=== PATIENT | male | born 1960 | race Two or more races ===

== ENCOUNTER 2016-08-01 10:47 | Outpatient (CLI) | payer MEDICAID, MEDICARE ==
[2016-08-04] MEDS ORDERED: METO100T6 PO (16:47)
== END 2016-08-01 23:59 | disposition home or self-care (01) ==
LOC: WOU 10:47
PROVIDERS: ATTEND Podiatrist Foot & Ankle Surgery
DX: E11.52 Type 2 diabetes mellitus with diabetic peripheral angiopathy with gangrene (principal); I70.262 Atherosclerosis of native arteries of extremities with gangrene, left leg; L97.529 Non-pressure chronic ulcer of other part of left foot with unspecified severity; Z83.3 Family history of diabetes mellitus; Z94.0 Kidney transplant status; Z79.4 Long term (current) use of insulin; Z79.899 Other long term (current) drug therapy; Z87.891 Personal history of nicotine dependence
CPT/HCPCS: A6402; G0463

== ENCOUNTER 2016-08-04 08:48 | Outpatient (CLI) | payer MEDICARE ==
[~2016-08-04] VITALS: Ht 167.6 cm; Wt 78.5 kg
[2016-08-04] MEDS ORDERED: LOSA50TA21 PO (16:47)
[2016-08-04] MEDS ORDERED: METO-306 PO (16:47)
[2016-08-04] MEDS ORDERED: FOLI1TAB16 PO (16:47)
[2016-08-04] MEDS ORDERED: CLON1PAT2 TD (16:47)
[2016-08-04] MEDS ORDERED: AMLO10TA2 PO (16:47)
[2016-08-04] MEDS ORDERED: MYCO500T5 PO (16:47)
[2016-08-04] MEDS ORDERED: PRED5TAB PO (16:47)
[2016-08-04] MEDS ORDERED: INSU3INS6 SUBCUT (17:07)
[2016-08-04] MEDS ORDERED: PANT40TA4 PO (17:07)
[2016-08-04] MEDS ORDERED: CALC0.253 PO (17:07)
[2016-08-04] MEDS ORDERED: ERGO400T7 PO (17:07)
[2016-08-04] MEDS ORDERED: [UNRECOGNIZED DRUG - CODE] MC (17:07)
[2016-08-04] MEDS ORDERED: LEVO50TA PO (17:07)
== END 2016-08-04 23:59 | disposition other institution (70) ==
LOC: WOU 08:48
PROVIDERS: ATTEND Podiatrist Foot & Ankle Surgery
DX: E11.52 Type 2 diabetes mellitus with diabetic peripheral angiopathy with gangrene (principal); E11.621 Type 2 diabetes mellitus with foot ulcer; L97.529 Non-pressure chronic ulcer of other part of left foot with unspecified severity; Z79.4 Long term (current) use of insulin; Z83.3 Family history of diabetes mellitus; Z87.891 Personal history of nicotine dependence; E11.42 Type 2 diabetes mellitus with diabetic polyneuropathy; Z94.0 Kidney transplant status; I70.262 Atherosclerosis of native arteries of extremities with gangrene, left leg
CPT/HCPCS: 36415; 87081; A6402; G0463

== ENCOUNTER 2016-08-04 10:35 | Inpatient (IN) | payer MEDICARE ==
[~2016-08-04] VITALS: Ht 167.6 cm; Wt 68.9 kg
[2016-08-04 12:00] VITALS: BP 159/78
[2016-08-04] MEDS ORDERED: MAG HYDROX/AL HYDROX/SIMETH 30 ML UDC PO PRN (12:30)
[2016-08-04] MEDS ORDERED: HYDROCODONE/APAP 5/325MG 1 EACH TABLET PO PRN (12:30)
[2016-08-04] MEDS ORDERED: Z GUARD REMEDY 2 OZ OINT TP PRN (12:30)
[2016-08-04] MEDS ORDERED: HYDROMORPHONE 1 MG/1 ML DISP.SYRIN IV PRN (12:30)
[2016-08-04] MEDS ORDERED: DEXTROSE 50%-WATER 50 ML DISP.SYRIN IV PRN (12:30)
[2016-08-04] MEDS ORDERED: ZOLPIDEM TARTRATE 5 MG TABLET PO PRN (12:30)
[2016-08-04] MEDS: BLOOD SUGAR DIAGNOSTIC 1 EACH STRIP VI SCH ×3 (13:00→21:33)
[2016-08-04 13:06] LABS: BASOPHILS % (AUTO) 0.2 % (0.0-2.0); DIFF TOTAL % 100 %; EOSINOPHILS # (AUTO) 0.1 /CMM (0.0-0.7); EOSINOPHILS % (AUTO) 1.6 % (0.0-6.0); HEMATOCRIT 34 % (39-51); HEMOGLOBIN 11.4 g/dL (13.5-17.5); LYMPHOCYTES % (AUTO) 12.6 % (20.0-44.0); MEAN CORPUSCULAR HEMOGLOBIN 26 PG (26.0-33.0); MEAN CORPUSCULAR HGB CONC 33 g/dl (31.0-36.0); MEAN CORPUSCULAR VOLUME 77 fL (80-96); MONOCYTES # (AUTO) 0.5 /CMM (0.1-1.30); MONOCYTES % (AUTO) 6.5 % (2.0-12.0); NEUTROPHILS % (AUTO) 79.1 % (43.0-81.0); PLATELET COUNT (AUTO) 502 /CMM (150-450); RED BLOOD CELL COUNT(AUTO) 4.44 MIL/uL (4.5-6.0); WHITE BLOOD COUNT (AUTO) 7.6 K/uL (4.3-11.0)
[2016-08-04 13:15] LABS: CALCIUM, SERUM 9.2 mg/dL (8.5-10.1); CREATININE 2.1 mg/dL (0.6-1.3); POTASSIUM 5.2 mmol/L (3.5-5.1)
[2016-08-04] MEDS ORDERED: IV SET PRIMARY PUMP SET 1 EA INFUS.SET MC ONE (14:37)
[2016-08-04] MEDS: IV NS 0.9% 1,000 ML IV SCH (14:41)
[2016-08-04] MEDS: HYDROMORPHONE INJ 2 MG/ML DISP.SYRIN IV PRN ×2 (14:41→20:20)
[2016-08-04 16:00] VITALS: BP 173/90
[2016-08-04] MEDS ORDERED: SODIUM POLYSTYRENE SULFONATE 15 G/60 ML BOTTLE PO ONE (16:00)
[2016-08-04 16:23] LABS: INR 0.95 (0.87-1.13); PROTHROMBIN TIME 10.3 SECS (9.5-12.7)
[2016-08-04] MEDS: Magnesium 1GM/D5W 100ML PREMIX 100 ML IV SCH ×3 (16:25→18:42)
[2016-08-04] MEDS: DOCUSATE SODIUM 250 MG CAPSULE PO SCH (16:28)
[2016-08-04] MEDS: INSULIN REGULAR, HUMAN 100 UNIT/ML 3 ML VIAL SQ PRN (16:35)
[2016-08-04] MEDS ORDERED: METO-306 PO (16:47)
[2016-08-04] MEDS ORDERED: PRED5TAB PO (16:47)
[2016-08-04] MEDS ORDERED: AMLO10TA2 PO (16:47)
[2016-08-04] MEDS ORDERED: CLON1PAT2 TD (16:47)
[2016-08-04] MEDS ORDERED: FOLI1TAB16 PO (16:47)
[2016-08-04] MEDS ORDERED: LOSA50TA21 PO (16:47)
[2016-08-04] MEDS ORDERED: MYCO500T5 PO (16:47)
[2016-08-04] MEDS ORDERED: PANT40TA4 PO (17:07)
[2016-08-04] MEDS ORDERED: INSU3INS6 SUBCUT (17:07)
[2016-08-04] MEDS ORDERED: LEVO50TA PO (17:07)
[2016-08-04] MEDS ORDERED: [UNRECOGNIZED DRUG - CODE] MC (17:07)
[2016-08-04] MEDS ORDERED: CALC0.253 PO (17:07)
[2016-08-04] MEDS ORDERED: ERGO400T7 PO (17:07)
[2016-08-04] MEDS ORDERED: BLOOD SUGAR DIAGNOSTIC 1 EACH STRIP IN SCH (17:30)
[2016-08-04] MEDS: ONDANSETRON HCL/PF 4 MG/2 ML VIAL IVP PRN (17:47)
[2016-08-04 20:00] VITALS: BP 150/86
[2016-08-04] MEDS: *INSULIN REGULAR(HUMULIN R)HUM 100 UNIT/ML VIAL SQ PRN (21:53)
[2016-08-05] VITALS (7 sets, daily range): BP systolic 144–168; BP diastolic 65–93
[2016-08-05] MEDS: IV NS 0.9% 1,000 ML IV SCH ×4 (00:27→17:46)
[2016-08-05] MEDS: HYDROMORPHONE INJ 2 MG/ML DISP.SYRIN IV PRN ×2 (00:28→15:07)
[2016-08-05] MEDS: ONDANSETRON HCL/PF 4 MG/2 ML VIAL IVP PRN ×2 (00:41→06:57)
[2016-08-05] MEDS: INSULIN DETEMIR 100 UNIT/ML CARTRIDGE SQ SCH (00:43)
[2016-08-05] MEDS: BLOOD SUGAR DIAGNOSTIC 1 EACH STRIP VI SCH ×4 (05:58→22:52)
[2016-08-05 07:16] LABS: DIFF TOTAL % 100 %; EOSINOPHILS % (AUTO) 0.6 % (0.0-6.0); HEMATOCRIT 34 % (39-51); HEMOGLOBIN 11.4 g/dL (13.5-17.5); LYMPHOCYTES # (AUTO) 0.6 /CMM (0.8-4.8); LYMPHOCYTES % (AUTO) 8.8 % (20.0-44.0); MEAN CORPUSCULAR HEMOGLOBIN 26 PG (26.0-33.0); MEAN CORPUSCULAR HGB CONC 33 g/dl (31.0-36.0); MEAN CORPUSCULAR VOLUME 78 fL (80-96); MONOCYTES # (AUTO) 0.5 /CMM (0.1-1.30); MONOCYTES % (AUTO) 7.6 % (2.0-12.0); NEUTROPHILS # (AUTO) 5.5 /CMM (1.8-8.9); PLATELET COUNT (AUTO) 492 /CMM (150-450); RED BLOOD CELL COUNT(AUTO) 4.43 MIL/uL (4.5-6.0); WHITE BLOOD COUNT (AUTO) 6.6 K/uL (4.3-11.0)
[2016-08-05] MEDS: PANTOPRAZOLE 40 MG TABLET.DR PO SCH (07:30)
[2016-08-05 07:43] LABS: THYROID STIMULATING HORMONE 2.262 uIU/mL (0.358-3.74)
[2016-08-05 07:47] LABS: CALCIUM, SERUM 8.8 mg/dL (8.5-10.1); CREATININE 1.9 mg/dL (0.6-1.3); PHOSPHORUS 3.6 mg/dL (2.5-4.9); POTASSIUM 4.7 mmol/L (3.5-5.1)
[2016-08-05] MEDS: LOSARTAN POTASSIUM 50 MG TABLET PO SCH ×2 (09:00→16:35)
[2016-08-05] MEDS ORDERED: PANTOPRAZOLE 40 MG TABLET.DR PO SCH (09:00)
[2016-08-05] MEDS: DOCUSATE SODIUM 250 MG CAPSULE PO SCH ×2 (09:00→16:14)
[2016-08-05] MEDS: LEVOTHYROXINE SODIUM 50 MCG TABLET PO SCH (10:00)
[2016-08-05] MEDS: METOPROLOL SUCCINATE 50 MG TAB.SR.24H PO SCH (10:00)
[2016-08-05] MEDS: AMLODIPINE BESYLATE 10 MG TABLET PO SCH (10:00)
[2016-08-05] MEDS: predniSONE 5 MG TABLET PO SCH (10:00)
[2016-08-05] MEDS: MYCOPHENOLATE MOFETIL 250 MG CAPSULE PO SCH ×2 (10:00→16:16)
[2016-08-05] MEDS: CALCITRIOL 0.25 MCG CAPSULE PO SCH (10:00)
[2016-08-05] MEDS: FOLIC ACID 1 MG TABLET PO SCH (10:00)
[2016-08-05] MEDS ORDERED: POVIDONE-IODINE OINT 28.4 GM TUBE ONE (10:20)
[2016-08-05] MEDS ORDERED: HYDROMORPHONE 1 MG/1 ML DISP.SYRIN ONE ×3 (11:21→11:53)
[2016-08-05] MEDS ORDERED: CLONIDINE HCL 0.2MG/24H PTWK 1 EA PATCH TD SCH (12:00)
[2016-08-05] MEDS: INSULIN REGULAR, HUMAN 100 UNIT/ML 3 ML VIAL SQ PRN ×2 (13:15→17:24)
[2016-08-05] MEDS ORDERED: CLONIDINE HCL 0.1 MG TABLET ONE (22:36)
[2016-08-05] MEDS: TACROLIMUS ANHYDROUS 1 MG CAPSULE PO SCH (22:52)
[2016-08-05] MEDS: CLONIDINE HCL 0.1 MG TABLET PO SCH (22:53)
[2016-08-06] MEDS: INSULIN DETEMIR 100 UNIT/ML CARTRIDGE SQ SCH ×2 (00:04→21:15)
[2016-08-06] MEDS: *INSULIN REGULAR(HUMULIN R)HUM 100 UNIT/ML VIAL SQ PRN ×4 (00:06→21:18)
[2016-08-06 04:00] VITALS: BP 155/83
[2016-08-06] MEDS: IV NS 0.9% 1,000 ML IV SCH ×2 (06:50→15:05)
[2016-08-06] MEDS: BLOOD SUGAR DIAGNOSTIC 1 EACH STRIP VI SCH ×4 (06:50→21:11)
[2016-08-06] MEDS: INSULIN REGULAR, HUMAN 100 UNIT/ML 3 ML VIAL SQ PRN (06:53)
[2016-08-06 08:00] VITALS: BP 179/97
[2016-08-06] MEDS: METOPROLOL SUCCINATE 50 MG TAB.SR.24H PO SCH (08:36)
[2016-08-06] MEDS: AMLODIPINE BESYLATE 10 MG TABLET PO SCH (08:37)
[2016-08-06] MEDS: predniSONE 5 MG TABLET PO SCH (08:37)
[2016-08-06] MEDS: LOSARTAN POTASSIUM 50 MG TABLET PO SCH ×2 (08:37→16:15)
[2016-08-06] MEDS: TACROLIMUS ANHYDROUS 1 MG CAPSULE PO SCH ×2 (08:37→21:11)
[2016-08-06] MEDS: DOCUSATE SODIUM 250 MG CAPSULE PO SCH ×2 (08:38→16:15)
[2016-08-06] MEDS: LEVOTHYROXINE SODIUM 50 MCG TABLET PO SCH (08:38)
[2016-08-06] MEDS: MYCOPHENOLATE MOFETIL 250 MG CAPSULE PO SCH ×2 (08:38→16:15)
[2016-08-06] MEDS: FOLIC ACID 1 MG TABLET PO SCH (08:38)
[2016-08-06] MEDS: CALCITRIOL 0.25 MCG CAPSULE PO SCH (08:38)
[2016-08-06] MEDS: PANTOPRAZOLE 40 MG TABLET.DR PO SCH (08:38)
[2016-08-06] MEDS: HYDROMORPHONE INJ 2 MG/ML DISP.SYRIN IV PRN (08:39)
[2016-08-06] MEDS: CLONIDINE HCL 0.1 MG TABLET PO SCH ×2 (09:39→16:17)
[2016-08-06] MEDS: oxyCODONE/APAP (5/325 MG) 1 UDTAB TABLET PO PRN (15:05)
[2016-08-06] MEDS: MAGNESIUM HYDROXIDE 30 ML UDC PO PRN (15:05)
[2016-08-06 16:00] VITALS: BP 158/86
[2016-08-06 20:00] VITALS: BP 165/84
[2016-08-07] MEDS: IV NS 0.9% 1,000 ML IV SCH ×3 (00:30→21:18)
[2016-08-07] MEDS: HYDROMORPHONE INJ 2 MG/ML DISP.SYRIN IV PRN (01:34)
[2016-08-07] MEDS: BLOOD SUGAR DIAGNOSTIC 1 EACH STRIP VI SCH ×4 (06:39→21:18)
[2016-08-07] MEDS: LEVOTHYROXINE SODIUM 50 MCG TABLET PO SCH (06:39)
[2016-08-07] MEDS: PANTOPRAZOLE 40 MG TABLET.DR PO SCH (06:39)
[2016-08-07] MEDS: INSULIN REGULAR, HUMAN 100 UNIT/ML 3 ML VIAL SQ PRN ×3 (06:43→17:15)
[2016-08-07 08:00] VITALS: BP 148/78
[2016-08-07 08:03] LABS: DIFF TOTAL % 100 %; EOSINOPHILS # (AUTO) 0.3 /CMM (0.0-0.7); EOSINOPHILS % (AUTO) 1.7 % (0.0-6.0); HEMATOCRIT 33 % (39-51); HEMOGLOBIN 10.9 g/dL (13.5-17.5); LYMPHOCYTES % (AUTO) 6.7 % (20.0-44.0); MEAN CORPUSCULAR HEMOGLOBIN 25 PG (26.0-33.0); MEAN CORPUSCULAR HGB CONC 33 g/dl (31.0-36.0); MEAN CORPUSCULAR VOLUME 78 fL (80-96); MONOCYTES # (AUTO) 0.9 /CMM (0.1-1.30); MONOCYTES % (AUTO) 5.8 % (2.0-12.0); NEUTROPHILS # (AUTO) 13.2 /CMM (1.8-8.9); NEUTROPHILS % (AUTO) 85.8 % (43.0-81.0); PLATELET COUNT (AUTO) 554 /CMM (150-450); WHITE BLOOD COUNT (AUTO) 15.4 K/uL (4.3-11.0)
[2016-08-07 08:12] LABS: CALCIUM, SERUM 8.6 mg/dL (8.5-10.1); CREATININE 1.7 mg/dL (0.6-1.3); POTASSIUM 4.6 mmol/L (3.5-5.1)
[2016-08-07 08:45] LABS: PHOSPHORUS 2.1 mg/dL (2.5-4.9)
[2016-08-07] MEDS: CLONIDINE HCL 0.1 MG TABLET PO SCH ×2 (08:53→16:40)
[2016-08-07] MEDS: MYCOPHENOLATE MOFETIL 250 MG CAPSULE PO SCH ×2 (08:53→16:40)
[2016-08-07] MEDS: FOLIC ACID 1 MG TABLET PO SCH (08:54)
[2016-08-07] MEDS: LOSARTAN POTASSIUM 50 MG TABLET PO SCH ×2 (08:54→16:40)
[2016-08-07] MEDS: DOCUSATE SODIUM 250 MG CAPSULE PO SCH ×2 (08:54→16:40)
[2016-08-07] MEDS: TACROLIMUS ANHYDROUS 1 MG CAPSULE PO SCH ×2 (08:55→21:17)
[2016-08-07] MEDS: predniSONE 5 MG TABLET PO SCH (08:55)
[2016-08-07] MEDS: CALCITRIOL 0.25 MCG CAPSULE PO SCH (08:55)
[2016-08-07] MEDS: METOPROLOL SUCCINATE 50 MG TAB.SR.24H PO SCH (08:57)
[2016-08-07] MEDS ORDERED: Sodium Phosphate 7.5 MMOL in IV D5W 100 ML IV ONE (11:30)
[2016-08-07] MEDS: Magnesium 1GM/D5W 100ML PREMIX 100 ML IV SCH ×2 (11:39→12:53)
[2016-08-07] MEDS ORDERED: SULF1TAB48 PO (13:15)
[2016-08-07 16:00] VITALS: BP 159/87
[2016-08-07] MEDS: oxyCODONE/APAP (5/325 MG) 1 UDTAB TABLET PO PRN (16:41)
[2016-08-07 20:00] VITALS: BP 157/80
[2016-08-07] MEDS: AMLODIPINE BESYLATE 10 MG TABLET PO SCH (21:18)
[2016-08-07] MEDS: INSULIN DETEMIR 100 UNIT/ML CARTRIDGE SQ SCH (21:30)
[2016-08-07] MEDS: *INSULIN REGULAR(HUMULIN R)HUM 100 UNIT/ML VIAL SQ PRN (21:31)
[2016-08-08] VITALS (9 sets, daily range): BP systolic 130–140; BP diastolic 52–90
[2016-08-08] MEDS: IV NS 0.9% 1,000 ML IV SCH ×2 (06:07→17:26)
[2016-08-08] MEDS: oxyCODONE/APAP (5/325 MG) 1 UDTAB TABLET PO PRN ×2 (06:13→12:47)
[2016-08-08 06:16] LABS: BASOPHILS % (AUTO) 0.1 % (0.0-2.0); EOSINOPHILS # (AUTO) 0.1 /CMM (0.0-0.7); EOSINOPHILS % (AUTO) 0.6 % (0.0-6.0); HEMATOCRIT 29 % (39-51); HEMOGLOBIN 9.4 g/dL (13.5-17.5); LYMPHOCYTES # (AUTO) 1.2 /CMM (0.8-4.8); LYMPHOCYTES % (AUTO) 7.5 % (20.0-44.0); MEAN CORPUSCULAR HEMOGLOBIN 26 PG (26.0-33.0); MEAN CORPUSCULAR HGB CONC 33 g/dl (31.0-36.0); MEAN CORPUSCULAR VOLUME 78 fL (80-96); MONOCYTES # (AUTO) 0.8 /CMM (0.1-1.30); NEUTROPHILS # (AUTO) 13.6 /CMM (1.8-8.9); NEUTROPHILS % (AUTO) 86.8 % (43.0-81.0); PLATELET COUNT (AUTO) 438 /CMM (150-450); RED BLOOD CELL COUNT(AUTO) 3.66 MIL/uL (4.5-6.0); WHITE BLOOD COUNT (AUTO) 15.7 K/uL (4.3-11.0)
[2016-08-08] MEDS: INSULIN REGULAR, HUMAN 100 UNIT/ML 3 ML VIAL SQ PRN (06:17)
[2016-08-08 06:34] LABS: PHOSPHORUS 2.4 mg/dL (2.5-4.9); POTASSIUM 3.9 mmol/L (3.5-5.1)
[2016-08-08 07:08] LABS: DIFF TOTAL % 100 %
[2016-08-08] MEDS: BLOOD SUGAR DIAGNOSTIC 1 EACH STRIP VI SCH ×4 (07:27→22:35)
[2016-08-08 08:22] LABS: ABG BASE EXCESS -2.3 mmol/L; ABG HCO3 20.8 mmol/L; ABG PH 7.459 (7.350-7.450); ABG PO2 37.1 mmHg (75.0-100.0); ABG TOTAL HEMOGLOBIN 9.8 G/dL (13.5-18.0); ALLEN TEST Pass; AaDO2 76.7 mmHg; O2Hb 73.6 % (94.0-97.0)
[2016-08-08] MEDS: MYCOPHENOLATE MOFETIL 250 MG CAPSULE PO SCH ×2 (08:41→17:26)
[2016-08-08] MEDS: CALCITRIOL 0.25 MCG CAPSULE PO SCH (08:41)
[2016-08-08] MEDS: TACROLIMUS ANHYDROUS 1 MG CAPSULE PO SCH ×2 (08:41→22:39)
[2016-08-08] MEDS: predniSONE 5 MG TABLET PO SCH (08:41)
[2016-08-08] MEDS: LEVOTHYROXINE SODIUM 50 MCG TABLET PO SCH (08:41)
[2016-08-08] MEDS: DOCUSATE SODIUM 250 MG CAPSULE PO SCH ×2 (08:41→17:26)
[2016-08-08] MEDS: FOLIC ACID 1 MG TABLET PO SCH (08:41)
[2016-08-08] MEDS: PANTOPRAZOLE 40 MG TABLET.DR PO SCH (08:42)
[2016-08-08] MEDS: METOPROLOL SUCCINATE 50 MG TAB.SR.24H PO SCH (08:42)
[2016-08-08] MEDS: CLONIDINE HCL 0.1 MG TABLET PO SCH ×2 (08:42→17:29)
[2016-08-08] MEDS: LOSARTAN POTASSIUM 50 MG TABLET PO SCH ×2 (08:42→17:29)
[2016-08-08] MEDS: MAGNESIUM HYDROXIDE 30 ML UDC PO PRN (08:46)
[2016-08-08] MEDS ORDERED: PIPERACILLIN /TAZOBACTAM 3.375 G in IV D5W 50 ML IV SCH (15:30)
[2016-08-08] MEDS ORDERED: K PHOS NEUTRAL 250 MG TABLET PO ONE (16:00)
[2016-08-08] MEDS: ALBUTEROL HALF STRENGTH 1.25 MG/3 ML VIAL.NEB NEB SCH ×3 (16:06→23:30)
[2016-08-08] MEDS: IPRATROPIUM NEB FS 0.5 MG/2.5 ML AMPUL.NEB NEB SCH ×3 (16:06→23:30)
[2016-08-08] MEDS: PIPERACILLIN /TAZOBACTAM 3.375 G in IV D5W 50 ML IV SCH ×2 (17:26→23:58)
[2016-08-08 18:43] LABS: ABG BASE EXCESS -5.1 mmol/L; ABG HCO3 18.4 mmol/L; ABG PCO2 29.1 mmHg (35.0-45.0); ABG PH 7.418 (7.350-7.450); ABG PO2 67.9 mmHg (75.0-100.0); ABG TOTAL HEMOGLOBIN 10.5 G/dL (13.5-18.0); ALLEN TEST Pass; O2Hb 91.9 % (94.0-97.0)
[2016-08-08] MEDS: AMLODIPINE BESYLATE 10 MG TABLET PO SCH (20:31)
[2016-08-08] MEDS: HEPARIN SODIUM, PORCINE 5000 UNITS/1 ML VIAL SQ SCH (20:33)
[2016-08-08] MEDS ORDERED: TACROLIMUS ANHYDROUS 1 MG CAPSULE ONE ×2 (21:36→22:37)
[2016-08-08] MEDS ORDERED: BISACODYL (5 MG) 5 MG TABLET.DR PO PRN (22:00)
[2016-08-08] MEDS: INSULIN DETEMIR 100 UNIT/ML CARTRIDGE SQ SCH (22:36)
[2016-08-08] MEDS: *INSULIN REGULAR(HUMULIN R)HUM 100 UNIT/ML VIAL SQ PRN (22:38)
[2016-08-09] VITALS (32 sets, daily range): BP systolic 93–167; BP diastolic 38–120
[2016-08-09] MEDS: ACETAMINOPHEN 325 MG TABLET PO PRN ×3 (00:20→21:44)
[2016-08-09] MEDS: ALBUTEROL HALF STRENGTH 1.25 MG/3 ML VIAL.NEB NEB SCH ×7 (00:38→22:58)
[2016-08-09] MEDS: IPRATROPIUM NEB FS 0.5 MG/2.5 ML AMPUL.NEB NEB SCH ×7 (00:39→22:59)
[2016-08-09] MEDS: IV NS 0.9% 1,000 ML IV SCH (03:23)
[2016-08-09 04:49] LABS: DIFF TOTAL % 100 %; EOSINOPHILS % (AUTO) 0.1 % (0.0-6.0); HEMATOCRIT 27 % (39-51); HEMOGLOBIN 8.9 g/dL (13.5-17.5); LYMPHOCYTES # (AUTO) 0.7 /CMM (0.8-4.8); MEAN CORPUSCULAR HEMOGLOBIN 26 PG (26.0-33.0); MEAN CORPUSCULAR HGB CONC 33 g/dl (31.0-36.0); MEAN CORPUSCULAR VOLUME 78 fL (80-96); MONOCYTES # (AUTO) 0.9 /CMM (0.1-1.30); MONOCYTES % (AUTO) 5.2 % (2.0-12.0); NEUTROPHILS # (AUTO) 15.8 /CMM (1.8-8.9); NEUTROPHILS % (AUTO) 90.7 % (43.0-81.0); PLATELET COUNT (AUTO) 435 /CMM (150-450); RED BLOOD CELL COUNT(AUTO) 3.45 MIL/uL (4.5-6.0); WHITE BLOOD COUNT (AUTO) 17.4 K/uL (4.3-11.0)
[2016-08-09 05:08] LABS: CREATININE 2.2 mg/dL (0.6-1.3); PHOSPHORUS 3.7 mg/dL (2.5-4.9); POTASSIUM 4.5 mmol/L (3.5-5.1)
[2016-08-09] MEDS: PIPERACILLIN /TAZOBACTAM 3.375 G in IV D5W 50 ML IV SCH ×3 (06:34→17:58)
[2016-08-09] MEDS: ONDANSETRON HCL/PF 4 MG/2 ML VIAL IVP PRN ×3 (07:49→17:56)
[2016-08-09] MEDS: MYCOPHENOLATE MOFETIL 250 MG CAPSULE PO SCH ×2 (08:33→16:33)
[2016-08-09] MEDS: DOCUSATE SODIUM 250 MG CAPSULE PO SCH ×2 (08:33→16:33)
[2016-08-09] MEDS: predniSONE 5 MG TABLET PO SCH (08:33)
[2016-08-09] MEDS: LEVOTHYROXINE SODIUM 50 MCG TABLET PO SCH (08:33)
[2016-08-09] MEDS: LOSARTAN POTASSIUM 50 MG TABLET PO SCH (08:33)
[2016-08-09] MEDS: PANTOPRAZOLE 40 MG TABLET.DR PO SCH (08:34)
[2016-08-09] MEDS: CALCITRIOL 0.25 MCG CAPSULE PO SCH (08:34)
[2016-08-09] MEDS: CLONIDINE HCL 0.1 MG TABLET PO SCH ×2 (08:34→16:34)
[2016-08-09] MEDS: BLOOD SUGAR DIAGNOSTIC 1 EACH STRIP VI SCH ×3 (08:34→21:47)
[2016-08-09] MEDS: METOPROLOL SUCCINATE 50 MG TAB.SR.24H PO SCH (08:34)
[2016-08-09] MEDS: FOLIC ACID 1 MG TABLET PO SCH (08:37)
[2016-08-09] MEDS: INSULIN REGULAR, HUMAN 100 UNIT/ML 3 ML VIAL SQ PRN ×2 (08:40→18:44)
[2016-08-09] MEDS: HEPARIN SODIUM, PORCINE 5000 UNITS/1 ML VIAL SQ SCH ×2 (08:41→21:42)
[2016-08-09] MEDS ORDERED: ERGOCALCIFEROL (VITAMIN D 2) 50,000 UNIT CAPSULE PO SCH (09:00)
[2016-08-09] MEDS: TACROLIMUS ANHYDROUS 1 MG CAPSULE PO SCH ×2 (09:51→21:41)
[2016-08-09] MEDS ORDERED: DEXTROSE 50%-WATER 50 ML DISP.SYRIN IV PRN ×2 (11:30→16:30)
[2016-08-09] MEDS ORDERED: INSULIN REGULAR, HUMAN 100 UNIT/ML 3 ML VIAL SQ PRN (11:30)
[2016-08-09] MEDS ORDERED: BLOOD SUGAR DIAGNOSTIC 1 EACH STRIP IN SCH (12:00)
[2016-08-09] MEDS: FUROSEMIDE 40 MG/4 ML VIAL IV SCH ×2 (12:38→16:33)
[2016-08-09 14:30] LABS: ABG BASE EXCESS -0.4 mmol/L; ABG HCO3 20.4 mmol/L; ABG PCO2 22.3 mmHg (35.0-45.0); ABG PO2 113.5 mmHg (75.0-100.0); ABG TOTAL HEMOGLOBIN 9.8 G/dL (13.5-18.0); ALLEN TEST Pass; AaDO2 433.5 mmHg; O2Hb 96.6 % (94.0-97.0)
[2016-08-09] MEDS ORDERED: IPRATROPIUM NEB FS 0.5 MG/2.5 ML AMPUL.NEB NEB PRN (14:30)
[2016-08-09] MEDS ORDERED: ALBUTEROL HALF STRENGTH 1.25 MG/3 ML VIAL.NEB NEB PRN (14:30)
[2016-08-09] MEDS: ACETYLCYSTEINE 20% SOLN 800 MG/4 ML VIAL NEB SCH ×2 (15:02→22:59)
[2016-08-09] MEDS ORDERED: FEE PK DOSING 1 MIN EA MC ONE (15:31)
[2016-08-09] MEDS ORDERED: IV SET PRIMARY PUMP SET 1 EA INFUS.SET MC ONE (16:20)
[2016-08-09 16:24] LABS: KETONES,URINE NEGATIVE (NEGATIVE); LEUKOCYTE ESTERASE ,URINE NEGATIVE (NEGATIVE); PH,URINE 5.5 (5.0-8.0)
[2016-08-09 16:30] LABS: CREATININE, URINE 32.6 MG/DL (30.0-125.0)
[2016-08-09] MEDS: VANCOMYCIN 1 GM in IV D5W 250 ML IV SCH (16:33)
[2016-08-09 16:48] LABS: ADD UA MICROSCOPIC YES
[2016-08-09 16:55] LABS: RBC,URINE 0-2 /HPF (0-2)
[2016-08-09 16:56] LABS: ADD URINE CULTURE NO; WBC,URINE NONE SEEN /HPF (0-3)
[2016-08-09] MEDS ORDERED: TACROLIMUS ANHYDROUS 1 MG CAPSULE ONE (21:29)
[2016-08-09] MEDS: AMLODIPINE BESYLATE 10 MG TABLET PO SCH (21:41)
[2016-08-09] MEDS: INSULIN DETEMIR 100 UNIT/ML CARTRIDGE SQ SCH (21:52)
[2016-08-09] MEDS: *INSULIN REGULAR(HUMULIN R)HUM 100 UNIT/ML VIAL SQ PRN (21:53)
[2016-08-10] VITALS (19 sets, daily range): BP systolic 111–146; BP diastolic 66–87
[2016-08-10] MEDS ORDERED: IV NS 0.9% 250 ML IV ONE (00:22)
[2016-08-10] MEDS: VANCOMYCIN 1 GM in IV D5W 250 ML IV SCH (00:27)
[2016-08-10] MEDS: PIPERACILLIN /TAZOBACTAM 3.375 G in IV D5W 50 ML IV SCH ×4 (00:27→17:27)
[2016-08-10] MEDS ORDERED: SECONDARY IV SET 1 EA INFUS.SET MC ONE (00:41)
[2016-08-10] MEDS: ALBUTEROL HALF STRENGTH 1.25 MG/3 ML VIAL.NEB NEB SCH ×6 (03:42→23:24)
[2016-08-10] MEDS: IPRATROPIUM NEB FS 0.5 MG/2.5 ML AMPUL.NEB NEB SCH ×6 (03:42→23:24)
[2016-08-10 04:46] LABS: DIFF TOTAL % 100 %; EOSINOPHILS # (AUTO) 0.1 /CMM (0.0-0.7); EOSINOPHILS % (AUTO) 0.5 % (0.0-6.0); HEMATOCRIT 27 % (39-51); HEMOGLOBIN 8.9 g/dL (13.5-17.5); LYMPHOCYTES # (AUTO) 0.9 /CMM (0.8-4.8); LYMPHOCYTES % (AUTO) 6.2 % (20.0-44.0); MEAN CORPUSCULAR HEMOGLOBIN 26 PG (26.0-33.0); MEAN CORPUSCULAR HGB CONC 34 g/dl (31.0-36.0); MEAN CORPUSCULAR VOLUME 77 fL (80-96); MONOCYTES # (AUTO) 0.8 /CMM (0.1-1.30); MONOCYTES % (AUTO) 5.7 % (2.0-12.0); NEUTROPHILS % (AUTO) 87.6 % (43.0-81.0); PLATELET COUNT (AUTO) 429 /CMM (150-450); RED BLOOD CELL COUNT(AUTO) 3.43 MIL/uL (4.5-6.0); WHITE BLOOD COUNT (AUTO) 14.9 K/uL (4.3-11.0)
[2016-08-10 05:14] LABS: CALCIUM, SERUM 8.6 mg/dL (8.5-10.1); CREATININE 2.6 mg/dL (0.6-1.3); PHOSPHORUS 3.9 mg/dL (2.5-4.9); POTASSIUM 3.6 mmol/L (3.5-5.1)
[2016-08-10] MEDS: PANTOPRAZOLE 40 MG TABLET.DR PO SCH (06:31)
[2016-08-10] MEDS: LEVOTHYROXINE SODIUM 50 MCG TABLET PO SCH (06:31)
[2016-08-10] MEDS: BLOOD SUGAR DIAGNOSTIC 1 EACH STRIP VI SCH ×4 (07:47→21:21)
[2016-08-10] MEDS: ACETYLCYSTEINE 20% SOLN 800 MG/4 ML VIAL NEB SCH ×3 (07:51→23:24)
[2016-08-10] MEDS: FUROSEMIDE 40 MG/4 ML VIAL IV SCH ×3 (07:53→08:09)
[2016-08-10] MEDS: *INSULIN REGULAR(HUMULIN R)HUM 100 UNIT/ML VIAL SQ PRN ×2 (07:55→21:21)
[2016-08-10] MEDS: predniSONE 5 MG TABLET PO SCH (09:02)
[2016-08-10] MEDS: FOLIC ACID 1 MG TABLET PO SCH (09:03)
[2016-08-10] MEDS: TACROLIMUS ANHYDROUS 1 MG CAPSULE PO SCH ×2 (09:03→21:15)
[2016-08-10] MEDS: DOCUSATE SODIUM 250 MG CAPSULE PO SCH ×2 (09:03→17:26)
[2016-08-10] MEDS: CALCITRIOL 0.25 MCG CAPSULE PO SCH (09:03)
[2016-08-10] MEDS: MYCOPHENOLATE MOFETIL 250 MG CAPSULE PO SCH ×2 (09:03→17:26)
[2016-08-10] MEDS: CLONIDINE HCL 0.1 MG TABLET PO SCH ×2 (09:04→17:26)
[2016-08-10] MEDS: METOPROLOL SUCCINATE 50 MG TAB.SR.24H PO SCH (09:04)
[2016-08-10] MEDS: HEPARIN SODIUM, PORCINE 5000 UNITS/1 ML VIAL SQ SCH ×2 (09:05→21:17)
[2016-08-10] MEDS: ONDANSETRON HCL/PF 4 MG/2 ML VIAL IVP PRN ×2 (10:51→16:24)
[2016-08-10] MEDS: INSULIN REGULAR, HUMAN 100 UNIT/ML 3 ML VIAL SQ PRN ×2 (12:11→17:30)
[2016-08-10] MEDS: AMLODIPINE BESYLATE 10 MG TABLET PO SCH (21:16)
[2016-08-10] MEDS: INSULIN DETEMIR 100 UNIT/ML CARTRIDGE SQ SCH (21:19)
[2016-08-11] VITALS: BP_SYST 140; BP_DIAS 70; BP_DIAS 76
[2016-08-11] MEDS ORDERED: IV SET PRIMARY PUMP SET 1 EA INFUS.SET MC ONE (00:09)
[2016-08-11] MEDS: PIPERACILLIN /TAZOBACTAM 3.375 G in IV D5W 50 ML IV SCH ×4 (00:10→17:31)
[2016-08-11] MEDS ORDERED: SECONDARY IV SET 1 EA INFUS.SET MC ONE ×2 (00:10→00:39)
[2016-08-11] MEDS ORDERED: IV NS 0.9% 250 ML IV ONE (00:10)
[2016-08-11] MEDS: IV NS 0.9% 250 ML IV PRN (00:39)
[2016-08-11] MEDS: ALBUTEROL HALF STRENGTH 1.25 MG/3 ML VIAL.NEB NEB SCH ×6 (03:24→23:30)
[2016-08-11] MEDS: IPRATROPIUM NEB FS 0.5 MG/2.5 ML AMPUL.NEB NEB SCH ×6 (03:24→23:30)
[2016-08-11 03:26] LABS: CALCIUM, SERUM 8.6 mg/dL (8.5-10.1); CREATININE 2.9 mg/dL (0.6-1.3); POTASSIUM 3.3 mmol/L (3.5-5.1)
[2016-08-11 04:00] VITALS: BP 143/62
[2016-08-11] MEDS: VANCOMYCIN 1 GM in IV D5W 250 ML IV SCH (04:20)
[2016-08-11] MEDS: ACETYLCYSTEINE 20% SOLN 800 MG/4 ML VIAL NEB SCH ×3 (07:34→23:30)
[2016-08-11] MEDS: LEVOTHYROXINE SODIUM 50 MCG TABLET PO SCH (07:51)
[2016-08-11] MEDS: PANTOPRAZOLE 40 MG TABLET.DR PO SCH (07:52)
[2016-08-11] MEDS: *INSULIN REGULAR(HUMULIN R)HUM 100 UNIT/ML VIAL SQ PRN ×3 (07:55→21:45)
[2016-08-11 08:00] VITALS: BP 114/74
[2016-08-11] MEDS: CLONIDINE HCL 0.1 MG TABLET PO SCH ×2 (08:00→16:47)
[2016-08-11] MEDS: predniSONE 5 MG TABLET PO SCH (08:00)
[2016-08-11] MEDS: DOCUSATE SODIUM 250 MG CAPSULE PO SCH ×2 (08:00→16:47)
[2016-08-11] MEDS: MYCOPHENOLATE MOFETIL 250 MG CAPSULE PO SCH ×2 (08:00→16:47)
[2016-08-11] MEDS: FOLIC ACID 1 MG TABLET PO SCH (08:01)
[2016-08-11] MEDS: METOPROLOL SUCCINATE 50 MG TAB.SR.24H PO SCH (08:01)
[2016-08-11] MEDS: TACROLIMUS ANHYDROUS 1 MG CAPSULE PO SCH ×2 (08:01→20:57)
[2016-08-11] MEDS: CALCITRIOL 0.25 MCG CAPSULE PO SCH (08:01)
[2016-08-11] MEDS: HEPARIN SODIUM, PORCINE 5000 UNITS/1 ML VIAL SQ SCH ×2 (08:07→20:55)
[2016-08-11] MEDS: BLOOD SUGAR DIAGNOSTIC 1 EACH STRIP VI SCH ×2 (08:09→11:13)
[2016-08-11 12:00] VITALS: BP 147/87
[2016-08-11] MEDS: ACETAMINOPHEN 325 MG TABLET PO PRN (12:40)
[2016-08-11] MEDS ORDERED: DEXTROSE 50%-WATER 50 ML DISP.SYRIN IV PRN (14:00)
[2016-08-11] MEDS: Z GUARD REMEDY 2 OZ OINT TP SCH (15:10)
[2016-08-11 16:00] VITALS: BP_SYST 124; BP_SYST 81; BP_DIAS 57; BP_DIAS 74
[2016-08-11] MEDS: INSULIN REGULAR, HUMAN 100 UNIT/ML 3 ML VIAL SQ PRN (18:06)
[2016-08-11] MEDS: BLOOD SUGAR DIAGNOSTIC 1 EACH STRIP IN SCH ×2 (18:12→21:48)
[2016-08-11 20:00] VITALS: BP 118/71
[2016-08-11] MEDS: AMLODIPINE BESYLATE 10 MG TABLET PO SCH (20:56)
[2016-08-11] MEDS ORDERED: INSULIN DETEMIR 100 UNIT/ML CARTRIDGE SQ SCH (22:00)
[2016-08-12] VITALS: BP 150/86
[2016-08-12] MEDS: PIPERACILLIN /TAZOBACTAM 3.375 G in IV D5W 50 ML IV SCH ×4 (00:02→17:44)
[2016-08-12] MEDS: ALBUTEROL HALF STRENGTH 1.25 MG/3 ML VIAL.NEB NEB SCH ×6 (03:28→23:17)
[2016-08-12] MEDS: IPRATROPIUM NEB FS 0.5 MG/2.5 ML AMPUL.NEB NEB SCH ×6 (03:28→23:17)
[2016-08-12 04:00] VITALS: BP 156/84
[2016-08-12 04:03] VITALS: BP 156/84
[2016-08-12] MEDS: IV NS 0.9% 250 ML IV PRN (05:27)
[2016-08-12 05:52] LABS: DIFF TOTAL % 100 %; EOSINOPHILS # (AUTO) 0.3 /CMM (0.0-0.7); EOSINOPHILS % (AUTO) 2.1 % (0.0-6.0); HEMATOCRIT 30 % (39-51); HEMOGLOBIN 9.9 g/dL (13.5-17.5); LYMPHOCYTES # (AUTO) 0.7 /CMM (0.8-4.8); MEAN CORPUSCULAR HEMOGLOBIN 25 PG (26.0-33.0); MEAN CORPUSCULAR HGB CONC 33 g/dl (31.0-36.0); MEAN CORPUSCULAR VOLUME 78 fL (80-96); MONOCYTES # (AUTO) 0.8 /CMM (0.1-1.30); MONOCYTES % (AUTO) 6.6 % (2.0-12.0); NEUTROPHILS # (AUTO) 10.4 /CMM (1.8-8.9); NEUTROPHILS % (AUTO) 85.3 % (43.0-81.0); PLATELET COUNT (AUTO) 458 /CMM (150-450); RED BLOOD CELL COUNT(AUTO) 3.87 MIL/uL (4.5-6.0); WHITE BLOOD COUNT (AUTO) 12.2 K/uL (4.3-11.0)
[2016-08-12 06:00] LABS: CALCIUM, SERUM 8.4 mg/dL (8.5-10.1); CREATININE 2.8 mg/dL (0.6-1.3); POTASSIUM 3.1 mmol/L (3.5-5.1)
[2016-08-12] MEDS: ACETYLCYSTEINE 20% SOLN 800 MG/4 ML VIAL NEB SCH ×3 (07:29→23:17)
[2016-08-12] MEDS: BLOOD SUGAR DIAGNOSTIC 1 EACH STRIP IN SCH ×4 (07:54→21:57)
[2016-08-12 08:00] VITALS: BP 148/89
[2016-08-12] MEDS: TACROLIMUS ANHYDROUS 1 MG CAPSULE PO SCH ×2 (08:48→21:56)
[2016-08-12] MEDS: MYCOPHENOLATE MOFETIL 250 MG CAPSULE PO SCH ×2 (08:49→16:35)
[2016-08-12] MEDS: METOPROLOL SUCCINATE 50 MG TAB.SR.24H PO SCH (08:49)
[2016-08-12] MEDS: LEVOTHYROXINE SODIUM 50 MCG TABLET PO SCH (08:49)
[2016-08-12] MEDS: FOLIC ACID 1 MG TABLET PO SCH (08:50)
[2016-08-12] MEDS: DOCUSATE SODIUM 250 MG CAPSULE PO SCH ×2 (08:51→16:36)
[2016-08-12] MEDS: predniSONE 5 MG TABLET PO SCH (08:51)
[2016-08-12] MEDS: PANTOPRAZOLE 40 MG TABLET.DR PO SCH (08:51)
[2016-08-12] MEDS: CLONIDINE HCL 0.1 MG TABLET PO SCH ×2 (08:51→16:36)
[2016-08-12] MEDS: CALCITRIOL 0.25 MCG CAPSULE PO SCH (08:53)
[2016-08-12] MEDS: INSULIN REGULAR, HUMAN 100 UNIT/ML 3 ML VIAL SQ PRN ×2 (08:54→12:22)
[2016-08-12] MEDS: Z GUARD REMEDY 2 OZ OINT TP SCH (08:55)
[2016-08-12] MEDS: HEPARIN SODIUM, PORCINE 5000 UNITS/1 ML VIAL SQ SCH ×2 (08:55→21:56)
[2016-08-12] MEDS: METRONIDAZOLE 500 MG TABLET PO SCH ×2 (14:58→21:56)
[2016-08-12 16:00] VITALS: BP 119/69
[2016-08-12] MEDS: VANCOMYCIN 1 GM in IV D5W 250 ML IV SCH (16:38)
[2016-08-12] MEDS: *INSULIN REGULAR(HUMULIN R)HUM 100 UNIT/ML VIAL SQ PRN ×2 (17:47→21:55)
[2016-08-12] MEDS ORDERED: POTASSIUM CHLORIDE 20 MEQ TAB.PRT.SR PO ONE (19:00)
[2016-08-12 20:00] VITALS: BP 132/72
[2016-08-12] MEDS: INSULIN DETEMIR 100 UNIT/ML CARTRIDGE SQ SCH (21:55)
[2016-08-12] MEDS: AMLODIPINE BESYLATE 10 MG TABLET PO SCH (21:57)
[2016-08-13] MEDS: PIPERACILLIN /TAZOBACTAM 3.375 G in IV D5W 50 ML IV SCH ×2 (00:22→05:07)
[2016-08-13] MEDS: IPRATROPIUM NEB FS 0.5 MG/2.5 ML AMPUL.NEB NEB SCH ×2 (03:30→07:48)
[2016-08-13] MEDS: ALBUTEROL HALF STRENGTH 1.25 MG/3 ML VIAL.NEB NEB SCH ×2 (03:30→07:49)
[2016-08-13 04:00] VITALS: BP 133/76
[2016-08-13] MEDS: METRONIDAZOLE 500 MG TABLET PO SCH (05:07)
[2016-08-13] MEDS: PANTOPRAZOLE 40 MG TABLET.DR PO SCH (06:48)
[2016-08-13] MEDS: LEVOTHYROXINE SODIUM 50 MCG TABLET PO SCH (06:48)
[2016-08-13] MEDS: BLOOD SUGAR DIAGNOSTIC 1 EACH STRIP IN SCH (06:48)
[2016-08-13 06:49] LABS: BASOPHILS % (AUTO) 0.2 % (0.0-2.0); DIFF TOTAL % 100 %; EOSINOPHILS # (AUTO) 0.3 /CMM (0.0-0.7); EOSINOPHILS % (AUTO) 2.6 % (0.0-6.0); HEMATOCRIT 29 % (39-51); HEMOGLOBIN 9.5 g/dL (13.5-17.5); LYMPHOCYTES # (AUTO) 0.9 /CMM (0.8-4.8); LYMPHOCYTES % (AUTO) 8.8 % (20.0-44.0); MEAN CORPUSCULAR HEMOGLOBIN 25 PG (26.0-33.0); MEAN CORPUSCULAR HGB CONC 33 g/dl (31.0-36.0); MEAN CORPUSCULAR VOLUME 78 fL (80-96); MONOCYTES # (AUTO) 0.7 /CMM (0.1-1.30); MONOCYTES % (AUTO) 7.1 % (2.0-12.0); NEUTROPHILS # (AUTO) 8.4 /CMM (1.8-8.9); NEUTROPHILS % (AUTO) 81.3 % (43.0-81.0); PLATELET COUNT (AUTO) 484 /CMM (150-450); RED BLOOD CELL COUNT(AUTO) 3.74 MIL/uL (4.5-6.0); WHITE BLOOD COUNT (AUTO) 10.3 K/uL (4.3-11.0)
[2016-08-13] MEDS: INSULIN REGULAR, HUMAN 100 UNIT/ML 3 ML VIAL SQ PRN (06:50)
[2016-08-13 07:30] LABS: CALCIUM, SERUM 8.6 mg/dL (8.5-10.1); CREATININE 2.4 mg/dL (0.6-1.3); POTASSIUM 3.6 mmol/L (3.5-5.1)
[2016-08-13] MEDS: ACETYLCYSTEINE 20% SOLN 800 MG/4 ML VIAL NEB SCH (07:48)
[2016-08-13 08:00] VITALS: BP 144/77
[2016-08-13 08:12] LABS: INR 0.99 (0.87-1.13); PROTHROMBIN TIME 10.7 SECS (9.5-12.7)
[2016-08-13] MEDS: CLONIDINE HCL 0.1 MG TABLET PO SCH (09:10)
[2016-08-13] MEDS: MYCOPHENOLATE MOFETIL 250 MG CAPSULE PO SCH (09:12)
[2016-08-13] MEDS: DOCUSATE SODIUM 250 MG CAPSULE PO SCH (09:13)
[2016-08-13] MEDS: predniSONE 5 MG TABLET PO SCH (09:14)
[2016-08-13] MEDS: FOLIC ACID 1 MG TABLET PO SCH (09:14)
[2016-08-13] MEDS: TACROLIMUS ANHYDROUS 1 MG CAPSULE PO SCH (09:15)
[2016-08-13] MEDS: CALCITRIOL 0.25 MCG CAPSULE PO SCH (09:15)
[2016-08-13 09:16] VITALS: BP 144/77
[2016-08-13] MEDS: METOPROLOL SUCCINATE 50 MG TAB.SR.24H PO SCH (09:16)
[2016-08-13] MEDS: HEPARIN SODIUM, PORCINE 5000 UNITS/1 ML VIAL SQ SCH (09:17)
[2016-08-13] MEDS: Z GUARD REMEDY 2 OZ OINT TP SCH (09:20)
[2016-08-13] MEDS: INSULIN DETEMIR 100 UNIT/ML CARTRIDGE SQ SCH (09:20)
[2016-08-13] MEDS: HYDROMORPHONE INJ 2 MG/ML DISP.SYRIN IV PRN (10:22)
[2016-08-13] MEDS ORDERED: INSU100I19 SQ (11:07)
[2016-08-13] MEDS ORDERED: INSU100V28 SQ (11:07)
[2016-08-13] MEDS ORDERED: *INS REG3 SQ (11:07)
[2016-08-13] MEDS ORDERED: VANCOMYCIN 1 GM in IV D5W 250 ML IV SCH (16:00)
== END 2016-08-13 12:00 | disposition left against medical advice (07) | DRG 853 ==
LOC: WOUND3 10:35 → WOUND2 10:35 → UNDOADMIN 10:35 → ICU 08-05 11:18 → WOUND3 08-05 12:10 → ICU 08-08 20:01 → TELE-TD 08-10 17:59 → MEDSG1 08-12 10:22
PROVIDERS: ADMIT Student in an Organized Health Care Education/Training Program; ATTEND Podiatrist Foot & Ankle Surgery
PROC: 0Y6N0ZB Detachment at Left Foot, Partial 2nd Ray, Open Approach (ICD-10-PCS; 2016-08-05)
PROC: 0Y6N0ZC Detachment at Left Foot, Partial 3rd Ray, Open Approach (ICD-10-PCS; 2016-08-05)
PROC: 0Y6N0ZD Detachment at Left Foot, Partial 4th Ray, Open Approach (ICD-10-PCS; 2016-08-05)
PROC: 0Y6N0ZF Detachment at Left Foot, Partial 5th Ray, Open Approach (ICD-10-PCS; 2016-08-05)
PROC: 0Y6N0Z9 Detachment at Left Foot, Partial 1st Ray, Open Approach (ICD-10-PCS; principal; 2016-08-05 09:10)
PROC: 5A09357 Assistance with Respiratory Ventilation, Less than 24 Consecutive Hours, Continuous Positive Airway Pressure (ICD-10-PCS; 2016-08-08)
DX: A41.9 Sepsis, unspecified organism (principal); N17.0 Acute kidney failure with tubular necrosis; J96.01 Acute respiratory failure with hypoxia; I50.41 Acute combined systolic (congestive) and diastolic (congestive) heart failure; J69.0 Pneumonitis due to inhalation of food and vomit; E11.52 Type 2 diabetes mellitus with diabetic peripheral angiopathy with gangrene; Z94.0 Kidney transplant status; J98.11 Atelectasis; I13.0 Hypertensive heart and chronic kidney disease with heart failure and stage 1 through stage 4 chronic kidney disease, or unspecified chronic kidney disease; A04.7 Enterocolitis due to Clostridium difficile; I25.10 Atherosclerotic heart disease of native coronary artery without angina pectoris; Z87.891 Personal history of nicotine dependence; E11.22 Type 2 diabetes mellitus with diabetic chronic kidney disease; E11.42 Type 2 diabetes mellitus with diabetic polyneuropathy; D63.8 Anemia in other chronic diseases classified elsewhere; E03.9 Hypothyroidism, unspecified; I48.0 Paroxysmal atrial fibrillation; E11.65 Type 2 diabetes mellitus with hyperglycemia; K59.00 Constipation, unspecified; Z98.61 Coronary angioplasty status; I12.9 Hypertensive chronic kidney disease with stage 1 through stage 4 chronic kidney disease, or unspecified chronic kidney disease; I70.202 Unspecified atherosclerosis of native arteries of extremities, left leg; R65.20 Severe sepsis without septic shock
CPT/HCPCS: 36415; 36600; 71010-TC; 73620-TC; 78582; 80048-TC; 80061-TC; 80197; 80202-TC; 81000-TC; 82570-TC; 82962-TC; 83735-TC; 84100-TC; 84443-TC; 85025-TC; 85610-TC; 85730-TC; 86850-TC; 86901; 87040-TC; 87070-TC; 87081-TC; 87086-TC; 88305-TC; 88307-TC; 88311-TC; 88312-TC; 92521; 93307-TC; 93925-TC; 94660; 94799-TC; 97001-TC; 97116-TC; 97530-TC; 99082-TC; A4606; A6253; A6402; A9540; A9563; A9567; J0690; J1100; J1170; J1644; J1815; J1940; J2405; J2543; J2704; J3370; J3475; J3490; J7030; J7050; J7060; J7507; J7512; J7517; Z7610

== ENCOUNTER 2016-08-15 12:52 | Emergency (ER) | payer MEDICARE ==
[~2016-08-15] VITALS: Ht 167.6 cm; Wt 75.3 kg
[~2016-08-15 12:52] MED LIST: *INS REG3 SQ; AMLO10TA2 PO; CALC0.253 PO; CLON1PAT2 TD; ERGO400T7 PO; FOLI1TAB16 PO; INSU100I19 SQ; INSU100V28 SQ; LEVO50TA PO; LOSA50TA21 PO; METO-306 PO; MYCO500T5 PO; PANT40TA4 PO; PRED5TAB PO; SULF1TAB48 PO; [UNRECOGNIZED DRUG - CODE] MC
[2016-08-15 13:44] LABS: BASOPHILS % (AUTO) 0.1 % (0.0-2.0); DIFF TOTAL % 100 %; EOSINOPHILS # (AUTO) 0.1 /CMM (0.0-0.7); EOSINOPHILS % (AUTO) 1.3 % (0.0-6.0); HEMATOCRIT 30 % (39-51); HEMOGLOBIN 9.8 g/dL (13.5-17.5); LYMPHOCYTES # (AUTO) 0.8 /CMM (0.8-4.8); LYMPHOCYTES % (AUTO) 7.2 % (20.0-44.0); MEAN CORPUSCULAR HEMOGLOBIN 26 PG (26.0-33.0); MEAN CORPUSCULAR HGB CONC 33 g/dl (31.0-36.0); MEAN CORPUSCULAR VOLUME 78 fL (80-96); MONOCYTES # (AUTO) 0.5 /CMM (0.1-1.30); MONOCYTES % (AUTO) 4.4 % (2.0-12.0); NEUTROPHILS # (AUTO) 9.1 /CMM (1.8-8.9); PLATELET COUNT (AUTO) 626 /CMM (150-450); RED BLOOD CELL COUNT(AUTO) 3.83 MIL/uL (4.5-6.0); WHITE BLOOD COUNT (AUTO) 10.5 K/uL (4.3-11.0)
[2016-08-15 14:03] VITALS: BP 114/71
[2016-08-15 14:07] LABS: ALBUMIN 2.1 g/dL (3.4-5.0); BILIRUBIN,DIRECT 0.1 mg/dL (0.0-0.2); BILIRUBIN,TOTAL 0.3 mg/dL (0.2-1.0); CALCIUM, SERUM 8.4 mg/dL (8.5-10.1); CREATININE 2.1 mg/dL (0.6-1.3); INDIRECT BILIRUBIN 0.2 mg/dL (0.0-1.1); POTASSIUM 4.1 mmol/L (3.5-5.1); TOTAL PROTEIN, SERUM 6.1 g/dL (6.4-8.2)
== END 2016-08-15 14:04 | disposition home or self-care (01) ==
LOC: ER 12:56
DX: E11.52 Type 2 diabetes mellitus with diabetic peripheral angiopathy with gangrene (principal); I10 Essential (primary) hypertension; Z95.810 Presence of automatic (implantable) cardiac defibrillator; Z94.0 Kidney transplant status
CPT/HCPCS: 36415; 80048-TC; 80076-TC; 85025-TC; A4606; A6253; Z7610

== ENCOUNTER 2016-08-22 14:07 | Inpatient (IN) | payer MEDICARE ==
[~2016-08-22] VITALS: Ht 167.6 cm; Wt 73.9 kg
[2016-08-22] MEDS ORDERED: IV SET PRIMARY PUMP SET 1 EA INFUS.SET MC ONE ×2 (14:27→14:33)
[2016-08-22] MEDS ORDERED: IV NS 0.9% 2,000 ML ONE (14:27)
[2016-08-22] MEDS ORDERED: IV NS 0.9% 1,000 ML BAG IV ONE (14:30)
[2016-08-22] MEDS ORDERED: PIPERACILLIN /TAZOBACTAM 3.375 G in IV D5W 50 ML IV ONE (14:30)
[2016-08-22] MEDS ORDERED: VANCOMYCIN 1 GM in IV D5W 250 ML IV ONE (14:30)
[2016-08-22 14:33] LABS: DIFF TOTAL % 100 %; EOSINOPHILS # (AUTO) 0.2 /CMM (0.0-0.7); EOSINOPHILS % (AUTO) 1.9 % (0.0-6.0); HEMATOCRIT 32 % (39-51); HEMOGLOBIN 10.4 g/dL (13.5-17.5); LYMPHOCYTES # (AUTO) 0.7 /CMM (0.8-4.8); LYMPHOCYTES % (AUTO) 6.5 % (20.0-44.0); MEAN CORPUSCULAR HEMOGLOBIN 25 PG (26.0-33.0); MEAN CORPUSCULAR HGB CONC 32 g/dl (31.0-36.0); MEAN CORPUSCULAR VOLUME 78 fL (80-96); MONOCYTES # (AUTO) 0.4 /CMM (0.1-1.30); MONOCYTES % (AUTO) 3.2 % (2.0-12.0); NEUTROPHILS # (AUTO) 9.8 /CMM (1.8-8.9); NEUTROPHILS % (AUTO) 88.4 % (43.0-81.0); PLATELET COUNT (AUTO) 716 /CMM (150-450); RED BLOOD CELL COUNT(AUTO) 4.16 MIL/uL (4.5-6.0); WHITE BLOOD COUNT (AUTO) 11.1 K/uL (4.3-11.0)
[2016-08-22 14:42] LABS: CALCIUM, SERUM 9.1 mg/dL (8.5-10.1); CREATININE 2.2 mg/dL (0.6-1.3)
[2016-08-22 14:55] LABS: LACTIC ACID 0.9 mmol/L (0.4-2.0)
[2016-08-22] MEDS ORDERED: INSU3INS6 SQ (14:59)
[2016-08-22] MEDS ORDERED: INSU100I4 SQ (14:59)
[2016-08-22] MEDS ORDERED: ERGO500047 PO (14:59)
[2016-08-22] MEDS ORDERED: TACR1CAP PO ×2 (14:59)
[2016-08-22] MEDS ORDERED: CLON0.2T PO (14:59)
[2016-08-22 15:07] LABS: INR 1.06 (0.87-1.13); PROTHROMBIN TIME 11.1 SECS (9.5-12.7)
[2016-08-22 16:42] VITALS: BP 145/76
[2016-08-22 20:00] VITALS: BP 134/70
[2016-08-22] MEDS ORDERED: MAGNESIUM HYDROXIDE 30 ML UDC PO PRN (21:00)
[2016-08-22] MEDS ORDERED: HYDROCODONE/APAP 5/325MG 1 EACH TABLET PO PRN (21:00)
[2016-08-22] MEDS ORDERED: ZOLPIDEM TARTRATE 5 MG TABLET PO PRN (21:00)
[2016-08-22] MEDS ORDERED: MAG HYDROX/AL HYDROX/SIMETH 30 ML UDC PO PRN (21:00)
[2016-08-22] MEDS ORDERED: Z GUARD REMEDY 2 OZ OINT TP PRN (21:00)
[2016-08-22] MEDS ORDERED: ACETAMINOPHEN 325 MG TABLET PO PRN (21:00)
[2016-08-22] MEDS ORDERED: ONDANSETRON HCL/PF 4 MG/2 ML VIAL IVP PRN (21:00)
[2016-08-22] MEDS: BLOOD SUGAR DIAGNOSTIC 1 EACH STRIP VI SCH (21:59)
[2016-08-22 22:00] VITALS: BP 134/70
[2016-08-22] MEDS ORDERED: *INSULIN REGULAR(HUMULIN R)HUM 100 UNIT/ML VIAL SQ PRN (22:00)
[2016-08-22] MEDS ORDERED: DEXTROSE 50%-WATER 50 ML DISP.SYRIN IV PRN (22:00)
[2016-08-23] MEDS ORDERED: PIPERACILLIN /TAZOBACTAM 3.375 G VIAL IV ONE ×2 (00:57→05:04)
[2016-08-23] MEDS ORDERED: IV NS 0.9% 50 ML IV ONE ×2 (00:59→05:41)
[2016-08-23] MEDS ORDERED: IV SET PRIMARY PUMP SET 1 EA INFUS.SET MC ONE ×2 (00:59→01:11)
[2016-08-23] MEDS ORDERED: SECONDARY IV SET 1 EA INFUS.SET MC ONE (00:59)
[2016-08-23] MEDS ORDERED: IV NS 0.9% 250 ML IV ONE (00:59)
[2016-08-23] MEDS: PIPERACILLIN /TAZOBACTAM 3.375 G in IV D5W 50 ML IV SCH ×2 (01:04→05:53)
[2016-08-23] MEDS: BLOOD SUGAR DIAGNOSTIC 1 EACH STRIP VI SCH ×2 (05:54→12:18)
[2016-08-23] MEDS: INSULIN REGULAR, HUMAN 100 UNIT/ML 3 ML VIAL SQ PRN ×2 (06:01→12:18)
[2016-08-23 06:55] LABS: BASOPHILS % (AUTO) 0.4 % (0.0-2.0); DIFF TOTAL % 100 %; EOSINOPHILS # (AUTO) 0.2 /CMM (0.0-0.7); EOSINOPHILS % (AUTO) 2.4 % (0.0-6.0); HEMATOCRIT 31 % (39-51); HEMOGLOBIN 10.2 g/dL (13.5-17.5); LYMPHOCYTES # (AUTO) 1.3 /CMM (0.8-4.8); LYMPHOCYTES % (AUTO) 14.8 % (20.0-44.0); MEAN CORPUSCULAR HEMOGLOBIN 25 PG (26.0-33.0); MEAN CORPUSCULAR HGB CONC 33 g/dl (31.0-36.0); MEAN CORPUSCULAR VOLUME 77 fL (80-96); MONOCYTES # (AUTO) 0.7 /CMM (0.1-1.30); MONOCYTES % (AUTO) 7.5 % (2.0-12.0); NEUTROPHILS # (AUTO) 6.6 /CMM (1.8-8.9); NEUTROPHILS % (AUTO) 74.9 % (43.0-81.0); PLATELET COUNT (AUTO) 666 /CMM (150-450); RED BLOOD CELL COUNT(AUTO) 4.02 MIL/uL (4.5-6.0); WHITE BLOOD COUNT (AUTO) 8.9 K/uL (4.3-11.0)
[2016-08-23 07:31] LABS: PHOSPHORUS 3.8 mg/dL (2.5-4.9); POTASSIUM 4.5 mmol/L (3.5-5.1)
[2016-08-23 07:57] VITALS: BP 142/70
[2016-08-23 07:58] VITALS: BP 142/76
[2016-08-23] MEDS ORDERED: LEVOTHYROXINE SODIUM 50 MCG TABLET PO SCH (08:17)
[2016-08-23] MEDS ORDERED: PANTOPRAZOLE 40 MG TABLET.DR PO SCH (08:18)
[2016-08-23 08:49] VITALS: BP 142/70
[2016-08-23] MEDS ORDERED: CLONIDINE HCL 0.1 MG TABLET PO SCH (09:00)
[2016-08-23] MEDS ORDERED: ERGOCALCIFEROL (VITAMIN D 2) 50,000 UNIT CAPSULE PO SCH (09:00)
[2016-08-23] MEDS ORDERED: FOLIC ACID 1 MG TABLET PO SCH (09:00)
[2016-08-23] MEDS ORDERED: predniSONE 5 MG TABLET PO SCH (09:00)
[2016-08-23] MEDS ORDERED: LOSARTAN POTASSIUM 50 MG TABLET PO SCH (09:00)
[2016-08-23] MEDS ORDERED: TACROLIMUS ANHYDROUS 1 MG CAPSULE PO SCH ×2 (09:00→18:00)
[2016-08-23] MEDS ORDERED: MYCOPHENOLATE MOFETIL 250 MG CAPSULE PO SCH (09:00)
[2016-08-23] MEDS ORDERED: FEE PK DOSING 1 MIN EA MC ONE (09:38)
[2016-08-23] MEDS ORDERED: Magnesium 1GM/D5W 100ML PREMIX 100 ML IV SCH (10:00)
[2016-08-23] MEDS ORDERED: VANCOMYCIN 1 GM in IV D5W 250 ML IV SCH (11:00)
[2016-08-23] MEDS ORDERED: PIPERACILLIN /TAZOBACTAM 2.25 G in IV D5W 50 ML IV SCH (12:00)
[2016-08-23] MEDS ORDERED: SULF1TAB48 PO (13:37)
[2016-08-23] MEDS ORDERED: AMLODIPINE BESYLATE 10 MG TABLET PO SCH (18:00)
[2016-08-23] MEDS ORDERED: INSULIN DETEMIR 100 UNIT/ML CARTRIDGE SQ SCH (22:00)
[2016-08-24] MEDS ORDERED: CALCITRIOL 0.25 MCG CAPSULE PO SCH (09:00)
== END 2016-08-23 15:28 | disposition home or self-care (01) | DRG 564 ==
LOC: ER 14:32 → MEDSG2 15:03
PROVIDERS: ADMIT Family Medicine; ATTEND Family Medicine
DX: T87.44 Infection of amputation stump, left lower extremity (principal); N17.0 Acute kidney failure with tubular necrosis; Z94.0 Kidney transplant status; E11.52 Type 2 diabetes mellitus with diabetic peripheral angiopathy with gangrene; Y83.5 Amputation of limb(s) as the cause of abnormal reaction of the patient, or of later complication, without mention of misadventure at the time of the procedure; Y92.9 Unspecified place or not applicable; I25.10 Atherosclerotic heart disease of native coronary artery without angina pectoris; Z87.891 Personal history of nicotine dependence; D63.8 Anemia in other chronic diseases classified elsewhere; E11.22 Type 2 diabetes mellitus with diabetic chronic kidney disease; G89.29 Other chronic pain; Z95.5 Presence of coronary angioplasty implant and graft; N18.9 Chronic kidney disease, unspecified; I12.9 Hypertensive chronic kidney disease with stage 1 through stage 4 chronic kidney disease, or unspecified chronic kidney disease
CPT/HCPCS: 36415; 71010-TC; 73630-TC; 80048-TC; 80061-TC; 82962-TC; 83605-TC; 83735-TC; 84100-TC; 85025-TC; 85652-TC; 85730-TC; 86140-TC; 87040-TC; 87081-TC; 97003-TC; A4216; A4606; A6402; J1815; J2543; J3370; J3475; J7030; J7050; J7060; J7507; J7512; J7517; Z7610

== ENCOUNTER 2016-09-08 09:40 | Outpatient (CLI) | payer MEDICARE ==
[~2016-09-08 09:40] MED LIST changes: -*INS REG3 SQ; +CLON0.2T PO; -CLON1PAT2 TD; -ERGO400T7 PO; +ERGO500047 PO; -INSU100I19 SQ; +INSU100I4 SQ; -INSU100V28 SQ; +INSU3INS6 SQ; -METO-306 PO; +TACR1CAP PO; -[UNRECOGNIZED DRUG - CODE] MC
== END 2016-09-08 23:59 | disposition home or self-care (01) ==
DX: T87.54 Necrosis of amputation stump, left lower extremity (principal); E11.52 Type 2 diabetes mellitus with diabetic peripheral angiopathy with gangrene; Z94.0 Kidney transplant status; Z87.891 Personal history of nicotine dependence; Z89.432 Acquired absence of left foot; T87.81 Dehiscence of amputation stump; I70.262 Atherosclerosis of native arteries of extremities with gangrene, left leg; L97.529 Non-pressure chronic ulcer of other part of left foot with unspecified severity; Z79.4 Long term (current) use of insulin; Z79.52 Long term (current) use of systemic steroids
CPT/HCPCS: A6402; G0463

== ENCOUNTER 2016-09-15 10:14 | Outpatient (CLI) | payer MEDICARE | END 2016-09-15 23:59 | disposition home or self-care (01) | LOC: WOU 10:14 | PROVIDERS: ATTEND Podiatrist Foot & Ankle Surgery | DX: E11.52 Type 2 diabetes mellitus with diabetic peripheral angiopathy with gangrene (principal); E11.42 Type 2 diabetes mellitus with diabetic polyneuropathy; I70.262 Atherosclerosis of native arteries of extremities with gangrene, left leg; Z87.891 Personal history of nicotine dependence; Z94.0 Kidney transplant status; Z83.3 Family history of diabetes mellitus; I10 Essential (primary) hypertension; T87.81 Dehiscence of amputation stump | CPT/HCPCS: A6253; A6402; G0463 ==

== ENCOUNTER 2016-09-22 09:45 | Outpatient (CLI) | payer MEDICARE | END 2016-09-22 23:59 | disposition home or self-care (01) | LOC: WOU 09:45 | PROVIDERS: ATTEND Podiatrist Foot & Ankle Surgery | DX: E11.52 Type 2 diabetes mellitus with diabetic peripheral angiopathy with gangrene (principal); I70.262 Atherosclerosis of native arteries of extremities with gangrene, left leg; L97.529 Non-pressure chronic ulcer of other part of left foot with unspecified severity; Z91.81 History of falling; Z89.432 Acquired absence of left foot; I10 Essential (primary) hypertension; Z94.0 Kidney transplant status; T87.81 Dehiscence of amputation stump | CPT/HCPCS: A6402; G0463 ==

== ENCOUNTER 2016-10-04 13:00 | Outpatient (CLI) | payer MEDICARE | END 2016-10-04 23:59 | disposition home or self-care (01) | LOC: VASLAB 13:00 | PROVIDERS: ATTEND Surgery Vascular Surgery | DX: T87.89 Other complications of amputation stump (principal); Z89.432 Acquired absence of left foot; E11.52 Type 2 diabetes mellitus with diabetic peripheral angiopathy with gangrene; Z94.0 Kidney transplant status; T87.81 Dehiscence of amputation stump; I70.262 Atherosclerosis of native arteries of extremities with gangrene, left leg | CPT/HCPCS: 87070-TC; 87186-TC; A6402; G0463 ==